=== PATIENT | female | born 1940 | race Two or more races ===

== ENCOUNTER 2018-12-18 15:34 | Emergency (ER) | payer MEDICARE, MEDICAID ==
[~2018-12-18] VITALS: Ht 152.4 cm; Wt 52.2 kg
[2018-12-18] MEDS ORDERED: HYDROcodone/Acetamin 5/325 tab ORAL ONE (16:00)
--- NOTE | 2018-12-18 16:03 | Emergency Room Report ---
History of Present Illness General Chief Complaint: Multiple Trauma/Fall Source: Patient Present Illness HPI Patient presented for increased right side chest and upper abdominal pain after fall from standing. No loc. pain to right shoulder. Denies head injury. Mental status has been at baseline since the fall No vomiting No progressive headache No Loss of consciousness No Numbness or weakness since the fall Patient has been able to ambulate since the fall Onset: sudden after fall timing: constant character: sharp location: right chest Duration: 2 days radiation: none intensity: severe Modifying factors: moveement or deep breaths. Associated signs and symptoms:none Allergies: Coded Allergies: No Known Allergies (Verified Allergy, Mild, 04/05/10) Patient History Past Medical History: see triage record Reviewed Nursing Documentation: PMH: Agreed; PSxH: Agreed Nursing Documentation-PMH Hx Hypertension: Yes - high cholesterol Hx Asthma: Yes Review of Systems All Other Systems: negative except mentioned in HPI Physical Exam Vital Signs Date Time Temp Pulse Resp B/P (MAP) Pulse Ox O2 Delivery O2 Flow Rate FiO2 12/18/18 15:40 98.1 63 19 162/83 (109) 96 Room Air Sp02 EP Interpretation: reviewed, normal General Appearance: normal inspection, no apparent distress, alert, GCS 15, non -toxic, mild distress, thin Head: atraumatic ENT: normal ENT inspection, hearing grossly normal, normal voice Neck: normal inspection, full range of motion, supple, no bony tend Respiratory: normal inspection, lungs clear, normal breath sounds, no respiratory distress, no retraction, no wheezing, other - right side chest wall tenderness Cardiovascular #1: regular rate, rhythm, no edema Gastrointestinal: normal inspection, normal bowel sounds, non tender, soft, no guarding, no hernia Genitourinary: no CVA tenderness Musculoskeletal: normal inspection, back normal, normal range of motion Neurologic: normal inspection, alert, oriented x3, responsive, prints and drawings curator III-XII nml as tested, speech normal Psychiatric: normal inspection, judgement/insight normal, mood/affect normal Medical Decision Making Diagnostic Impression: Primary Impression: Fall Additional Impressions: Chest wall contusion Shoulder contusion Thyroid enlargement Closed rib fracture ER Course Patient presented after a fall. Differential diagnosis included but was not limited to head injury, hip fracture, intracranial hemorrhage, cervical spine injury, syncopal episode among others. Patient was awake and alet CT imaging showed no definite acute fracture but possible nondisplaced 10th rib fracture, no pneumothorax or fluid collection Patient will follow up with primary care physician for recheck in 2-3 days. Patient was able to ambulate with a steady gait. Disposition: Discharged home with a responsible republican Patient to return for increased headache, persistent vomiting, extremity weakness, increased confusion or any other concerns. Last Vital Signs Date Time Temp Pulse Resp B/P (MAP) Pulse Ox O2 Delivery O2 Flow Rate FiO2 12/18/18 15:40 98.1 63 19 162/83 (109) 96 Room Air Status: improved Disposition: HOME, SELF-CARE Condition: Stable Scripts Docusate Sodium* (COLACE*) 100 Mg Capsule 100 MG ORAL TWICE A DAY, #20 CAP Prov: David Mcnally MD 12/18/18 Hydrocodone Bit/Acetaminophen 5-325* (NORCO 5-325*) 1 Each Tablet 1 TAB ORAL Q6H PRN for For Pain, #20 TAB 0 Refills Prov: David Mcnally MD 12/18/18 David Mcnally MD Dec 18, 2018 16:03
[2018-12-18 16:10] VITALS: BP 162/83
--- NOTE | 2018-12-18 16:12 | NUR ---
ED Nurse Note:pt. came from home s/p fall, c/o right ribs pain, no brusing noted, pt, received pain meds
--- NOTE | 2018-12-18 16:46 | Diagnostic Imaging Report ---
Clinical Indication: Chest pain, right rib pain, status post fall Technique: Spiral acquisitions obtained through the chest. No IV contrast utilized, reason not stated. Multiplanar reconstructions generated. Total dose length product 402.36 mGycm. CTDIvol(s) 11.03 mGy. Dose reduction achieved using automated exposure control Comparison: none Findings: There is very slight irregularity of the right 10th rib costochondral junction. Probably physiologic but could represent a very subtle fracture. No other fracture demonstrated. No evidence of soft tissue contusion. There are degenerative changes of the thoracic spine. The lungs demonstrate scarring at the right lung apex. There is some atelectasis or scarring in the inferior lingula of the left upper lobe, anterolateral left lower lobe and in the right middle lobe. No evidence of pneumothorax or contusion. There is a 5 mm nodular opacity in the left upper lobe, image 23 series 5, which is somewhat irregular. No dense consolidation, effusions, or congestion demonstrated. The heart is borderline enlarged. No pericardial effusion. No mediastinal or hilar mass or adenopathy. The left lobe of the thyroid is slightly prominent. No axillary or chest wall mass or adenopathy. Included upper abdominal anatomy demonstrates mild fullness of the visualized right upper pole renal collecting system. There is a 3 cm cyst coming off of the upper pole of the left kidney. Impression: Questionable slight irregularity of the right 10th rib costochondral junction; of doubtful significance but nondisplaced fracture not completely excludable. No acute bony or significant soft tissue trauma otherwise Areas of scarring and/or atelectasis in the lungs bilaterally. Para 5 mm nodular opacity in the left upper lobe. Suspect postinflammatory in nature. If there are risk factors for lung carcinoma, this should be followed up in 6-12 months. No further follow-up necessary if there is no significant smoking history or other risk factors Mild fullness of the visualized bladder wall renal collecting system. Significance/etiology uncertain. Consider sonography and or abdomen pelvis CT evaluation for further evaluation if clinically indicated Borderline cardiomegaly Slightly asymmetrically enlarged left thyroid lobe Incidental findings of left upper pole renal cyst, degenerative spondylosis The CT scanner at [facility] is accredited by the [employer] and the scans are performed using protocols designed to limit radiation exposure to as low as reasonably achievable to attain images of sufficient resolution adequate for diagnostic evaluation.
[2018-12-18] MEDS ORDERED: COLACE100 MG ORAL (16:55)
[2018-12-18] MEDS ORDERED: NORCO 5-325 TA1 EACH ORAL (16:55)
[2018-12-18 17:03] VITALS: BP 156/80
--- NOTE | 2018-12-18 17:05 | NUR ---
ER DISCHARGE NOTE: Patient is cleared to be discharged per ERMD, pt is aox4, on room air, with stable vital signs. pt was given dc and prescription instructions, pt was able to verbalize understanding, pt is able to ambulate with steady gait, acompanied by son pt took all belongings
== END 2018-12-18 17:05 | disposition home or self-care (01) ==
LOC: EMR 15:55
DX: S20.211A Contusion of right front wall of thorax, initial encounter (principal); S40.011A Contusion of right shoulder, initial encounter; W19.XXXA Unspecified fall, initial encounter; Y92.9 Unspecified place or not applicable; I10 Essential (primary) hypertension; J45.909 Unspecified asthma, uncomplicated; E78.00 Pure hypercholesterolemia, unspecified
CPT/HCPCS: 71250; 99284

== ENCOUNTER 2019-02-22 22:27 | Emergency (ER) | payer MEDICARE, MEDICAID ==
[~2019-02-22] VITALS: Ht 152.4 cm; Wt 68.0 kg
[~2019-02-22 22:27] MED LIST: COLACE100 MG ORAL; NORCO 5-325 TA1 EACH ORAL; PREDNISONE20 MG ORAL; ULTRA-LIGHT RO1 EACH MC
[2019-02-22] MEDS ORDERED: TRAZODONE HCL50 MG ORAL (22:34)
[2019-02-22] MEDS ORDERED: CRESTOR10 M2 ORAL (22:34)
--- NOTE | 2019-02-22 22:35 | NUR ---
ED Nurse Note: Pt walked in to ED for C/O elevated BP. pt states her usual SBP is 120s-130s. pt is alert x4.
[2019-02-22 22:36] VITALS: BP 160/90
--- NOTE | 2019-02-22 22:48 | Emergency Room Report ---
History of Present Illness General Chief Complaint: Hypertension Source: Patient Present Illness HPI 78-year-old female history of hypertension, hyperlipidemia, presents with elevated blood pressure 180 at home, asymptomatic, patient has been under a lot of stress, as her son is in the hospital she denies any chest pain changes in vision headache, nausea, vomiting, patient presents for evaluation of her blood pressure, stress tends aggravated alleviated by relaxation severity is mild, constant, she was brought in by her friend. Allergies: Coded Allergies: No Known Allergies (Verified Allergy, Mild, 04/05/10) Patient History Past Medical History: see triage record Reviewed Nursing Documentation: PMH: Agreed; PSxH: Agreed Nursing Documentation-PMH Past Medical History: No History, Except For Hx Hypertension: Yes Hx Asthma: Yes Review of Systems All Other Systems: negative except mentioned in HPI Physical Exam Vital Signs Date Time Temp Pulse Resp B/P (MAP) Pulse Ox O2 Delivery O2 Flow Rate FiO2 02/22/19 22:29 97.7 74 16 159/88 (111) 98 Room Air Sp02 EP Interpretation: reviewed, normal General Appearance: well appearing, no apparent distress, alert Head: normocephalic, atraumatic Eyes: bilateral eye PERRL, bilateral eye EOMI ENT: uvula midline, moist mucus membranes Neck: supple, thyroid normal, supple/symm/no masses Respiratory: lungs clear, no respiratory distress, no retraction, no accessory muscle use Cardiovascular #1: normal peripheral pulses, regular rate, rhythm, no edema, no gallop, no murmur Gastrointestinal: non tender, soft, no guarding, no rebound Musculoskeletal: normal inspection Neurologic: alert, oriented x3 Psychiatric: mood/affect normal Skin: no rash, warm/dry Medical Decision Making Diagnostic Impression: Primary Impression: Hypertension Qualified Codes: I10 - Essential (primary) hypertension ER Course 78-year-old female presents with a symptom medic hypertension, no chest pain or shortness of breath, no headache, patient has been stressed over the past 2 days , will evaluate for possible brain bleed, ACS, pneumonia Chest x-ray negative, EKG shows no acute processes, CT brain negative Labs negative, slight hyponatremia Follow-up with PCP Laboratory Tests Test 02/22/19 22:50 02/22/19 23:17 White Blood Count 9.0 K/UL (4.8-10.8) Red Blood Count 4.89 M/UL (4.20-5.40) Hemoglobin 13.9 G/DL (12.0-16.0) Hematocrit 40.0 % (37.0-47.0) Mean Corpuscular Volume 82 FL (80-99) Mean Corpuscular Hemoglobin 28.4 PG (27.0-31.0) Mean Corpuscular Hemoglobin Concent 34.7 G/DL (32.0-36.0) Red Cell Distribution Width 12.7 % (11.6-14.8) Platelet Count 384 K/UL (150-450) Mean Platelet Volume 5.5 FL (6.5-10.1) L Neutrophils (%) (Auto) 65.3 % (45.0-75.0) Lymphocytes (%) (Auto) 24.2 % (20.0-45.0) Monocytes (%) (Auto) 8.9 % (1.0-10.0) Eosinophils (%) (Auto) 0.8 % (0.0-3.0) Basophils (%) (Auto) 1.0 % (0.0-2.0) Sodium Level 129 MMOL/L (136-145) L Potassium Level 3.9 MMOL/L (3.5-5.1) Chloride Level 95 MMOL/L (98-107) L Carbon Dioxide Level 24 MMOL/L (21-32) Anion Gap 10 mmol/L (5-15) Blood Urea Nitrogen 13 mg/dL (7-18) Creatinine 0.6 MG/DL (0.55-1.30) Estimate Glomerular Filtration Rate mL/min (>60) Glucose Level 100 MG/DL (74-106) Calcium Level 8.8 MG/DL (8.5-10.1) Total Bilirubin 0.3 MG/DL (0.2-1.0) Aspartate Amino Transferase (AST) 18 U/L (15-37) Alanine Aminotransferase (ALT) 20 U/L (12-78) Alkaline Phosphatase 58 U/L (46-116) Troponin I 0.000 ng/mL (0.000-0.056) Total Protein 7.4 G/DL (6.4-8.2) Albumin 3.6 G/DL (3.4-5.0) Globulin 3.8 g/dL Albumin/Globulin Ratio 0.9 (1.0-2.7) L Urine Color Pale yellow Urine Appearance Clear Urine pH 7 (4.5-8.0) Urine Specific [place] 1.010 (1.005-1.035) Urine Protein Negative (NEGATIVE) Urine Glucose (UA) Negative (NEGATIVE) Urine Ketones Negative (NEGATIVE) Urine Blood Negative (NEGATIVE) Urine Nitrite Negative (NEGATIVE) Urine Bilirubin Negative (NEGATIVE) Urine Urobilinogen Normal MG/DL (0.0-1.0) Urine Leukocyte Esterase 1+ (NEGATIVE) H Urine RBC 0-2 /HPF (0 - 2) Urine WBC 0-2 /HPF (0 - 2) Urine Squamous Epithelial Cells Few /LPF (NONE/OCC) Urine Bacteria None /HPF (NONE) EKG Diagnostic Results EKG Time: 23:49 EP Interpretation: NSR, rate 69, QTc 46, no acute ST elevations, slight depressions 2 3 aVF Rhythm Strip Diag. Results Rhythm Strip Time: 22:51 EP Interpretation: yes Rate: 70 Rhythm: NSR, no PVC's, no ectopy Chest X-Ray Diagnostic Results Chest X-Ray Diagnostic Results : Chest X-Ray Ordered: Yes # of Views/Limited/Complete: 1 View Indication: Shortness of Breath EP Interpretation: Yes Interpretation: no consolidation, no effusion, no pneumothorax, no acute cardiopulmonary disease Impression: No acute disease Electronically Signed by: Ernie Jennings MD CT/MRI/US Diagnostic Results CT/MRI/US Diagnostic Results : Impression CT head: No acute processes stat rad Last Vital Signs Date Time Temp Pulse Resp B/P (MAP) Pulse Ox O2 Delivery O2 Flow Rate FiO2 02/22/19 22:29 97.7 74 16 159/88 (111) 98 Room Air Disposition: HOME, SELF-CARE Condition: Stable Referrals: NIMCO DIAZ MD (PCP) Patient Instructions: Hypertension, [id number] Additional Instructions: The patient was provided with discharge instructions, notified to follow-up with a primary care doctor and or specialist in the next 24-48 hours, and to return to the ED if they have worsening of their symptoms. Please note that this report is being documented using mParticle technology. This can lead to erroneous entry secondary to incorrect interpretation by the dictating instrument. Please have a redraw to recheck your sodium in 1 week Ernie Jennings MD Feb 22, 2019 22:48
--- NOTE | 2019-02-22 22:57 | NUR ---
ED Nurse Note: blood sample sent down to lab. pt unable to provide urine at this time.
[2019-02-22] MEDS ORDERED: LORazepam 0.5mg tab ORAL ONE (23:00)
[2019-02-22 23:04] LABS: EOSINOPHILS % (AUTO) 0.8 % (0.0-3.0); HEMOGLOBIN 13.9 G/DL (12.0-16.0); LYMPHOCYTES % (AUTO) 24.2 % (20.0-45.0); MEAN CORPUSCULAR VOLUME 82 FL (80-99); MONOCYTES % (AUTO) 8.9 % (1.0-10.0); NEUTROPHILS % (AUTO) 65.3 % (45.0-75.0); PLATELET COUNT 384 K/UL (150-450); RED BLOOD COUNT 4.89 M/UL (4.20-5.40); RED CELL DISTRIBUTION WIDTH 12.7 % (11.6-14.8)
--- NOTE | 2019-02-22 23:21 | NUR ---
ED Nurse Note: urine sample sent down to lab
--- NOTE | 2019-02-22 23:30 | NUR ---
ED Nurse Note: Returned back from CT
[2019-02-22 23:34] LABS: APPEARANCE,URINE CLEAR; BILIRUBIN, URINE NEGATIVE (NEGATIVE); COLOR,URINE PALE YELLOW; GLUCOSE, URINE (UA) NEGATIVE (NEGATIVE); KETONES,URINE NEGATIVE (NEGATIVE); LEUKOCYTE ESTERASE ,URINE 1+ (NEGATIVE); NITRITE,URINE NEGATIVE (NEGATIVE); PH,URINE 7 (4.5-8.0); PROTEIN,URINE NEGATIVE (NEGATIVE); UROBILINOGEN,URINE NORMAL MG/DL (0.0-1.0)
--- NOTE | 2019-02-22 23:35 | NUR ---
ED Nurse Note: pt was taken to have CT accompanied by extractions technician via w/c.
[2019-02-22 23:43] LABS: ANION GAP 10 mmol/L (5-15); BLOOD UREA NITROGEN 13 mg/dL (7-18); CALCIUM 8.8 MG/DL (8.5-10.1); CARBON DIOXIDE 24 MMOL/L (21-32); CHLORIDE 95 MMOL/L (98-107); CREATININE 0.6 MG/DL (0.55-1.30); POTASSIUM 3.9 MMOL/L (3.5-5.1); SODIUM 129 MMOL/L (136-145)
[2019-02-22 23:48] LABS: ALANINE AMINOTRANSFERASE 20 U/L (12-78); ALBUMIN 3.6 G/DL (3.4-5.0); ALBUMIN/GLOBULIN RATIO 0.9 (1.0-2.7); ALKALINE PHOSPHATASE 58 U/L (46-116); ASPARTATE AMINO TRANSFERASE 18 U/L (15-37); BILIRUBIN,TOTAL 0.3 MG/DL (0.2-1.0)
--- NOTE | 2019-02-23 00:31 | Diagnostic Imaging Report ---
Indication: Headache Technique: Contiguous 5 mm thick transaxial imaging of the head obtained in a Siem[employer] Sensation [address] scanner. Soft tissue and bone windows generated. Automatic Exposure Control was utilized. Total Dose length Product (DLP): [address] Dose Index Volume (CTDIvol): 62.7 mGy Comparison: 04/05/2010 Findings: There is mild prominence of the ventricles, basal cisterns, and cerebral sulci consistent with atrophy. Mild, nonspecific, white matter hypoattenuation is noted throughout the brain consistent with chronic small vessel disease. There is no midline shift, edema, acute hemorrhage, mass effect, or abnormal extra-axial fluid collections. Bones are unremarkable. Impression: No acute intracranial bleed, mass effect or edema. Mild atrophy of the brain. Nonspecific white matter hypoattenuation probably due to chronic small vessel disease. [facility] has communicated the preliminary results to the Emergency Department. Their findings are largely concordant with this report. The CT scanner at [facility] is accredited by the [employer] and the scans are performed using dose optimization techniques as appropriate to a performed exam including Automatic Exposure control.
[2019-02-23 00:32] VITALS: BP 152/81
[2019-02-23 01:05] VITALS: BP 154/80
--- NOTE | 2019-02-23 01:05 | NUR ---
ER DISCHARGE NOTE: Patient is cleared to be discharged per ERMD, pt is aox4, on room air, with stable vital signs. pt was given dc and prescription instructions, pt was able to verbalize understanding, pt id band and iv site removed without complications. pt is able to ambulate with steady gait. pt took all belongings.
--- NOTE | 2019-02-23 13:10 | Diagnostic Imaging Report ---
Indication: Dyspnea Comparison: The 15 A single view chest radiograph was obtained. Findings: No definite infiltrate or pulmonary vascular congestion identified. The heart is enlarged. The aorta is mildly enlarged consistent with atherosclerotic vascular disease. The bones are osteopenic. Impression: No acute disease
--- NOTE | 2019-02-24 07:24 | Cardiology Report ---
APPROVED REPORT EKG Measurement Heart [id number] Normal sinus rhythm Possible Left atrial enlargement Septal infarct, age undetermined Abnormal ECG
== END 2019-02-23 01:05 | disposition home or self-care (01) ==
LOC: EMR 22:39
DX: I10 Essential (primary) hypertension (principal); J45.909 Unspecified asthma, uncomplicated; E78.5 Hyperlipidemia, unspecified
CPT/HCPCS: 36415; 70450; 71045; 80053; 81003; 84484; 85025; 93005; 96360; 99284